=== PATIENT | male | born 1980 | race Caucasian/White ===

== ENCOUNTER 2017-01-25 16:26 | Emergency (ER) | payer OTHER ==
[~2017-01-25 16:26] MED LIST: ZYRTEC10 M2 PO
== END 2017-01-25 17:03 | disposition home or self-care (01) ==
LOC: SED 16:26
DX: J02.0 Streptococcal pharyngitis (principal); Z88.8 Allergy status to other drugs, medicaments and biological substances
CPT/HCPCS: 87651; 99282

== ENCOUNTER 2017-04-09 20:07 | Emergency (ER) | payer OTHER ==
--- NOTE | ~2017-04-09 | EKG ---
PATIENT: VERO MAYER UNIT #: [id number] Ventricular Rate: 70 BPM Atrial Rate: 70 BPM P-R Interval: 140 ms QRS Duration: 80 ms Q-T Interval: 380 ms QTC Calculation(Bezet): 410 ms P [place]: 55 degrees Calculated R [place]: 76 degrees Calculated T [place]: 70 degrees Diagnosis Line: Normal sinus rhythm Diagnosis Line: Normal ECG Diagnosis Line: No previous ECGs available Diagnosis Line: Confirmed by BALAJI HANSON MD ([id number]) on Diagnosis Line: 04/09/2017 10:25:55 PM INTERPRETING MD: IVÁN
--- NOTE | ~2017-04-09 | CR72 ---
[facility] A Service of [facility] & [facility] RADIOLOGY TEXT RESULTS PATIENT: VERO MAYER LOCATION: [facility] : 76 UNIT #: [id number] AGE: [address]: Taniya Harvey MD SEX: M ORDER DR: [id number] [facility] [address] [place], [place] [address] [id number] E MR#: [id number] Acc #: [id number] NAME: VERO MAYER : 1980 SEX: M STUDY DATE/TIME: 04/09/2017 21:24 UNIT: [facility] ROOM: STUDY DESCRIPTION: CR Chest Single View Portable Attending Physician: Taniya Harvey M.D. Ordering Physician: Ed Doctor [id number] [facility] Primary Care Physician: Stephany Kaiser M.D. MEDICAL IMAGING REPORT This report is preliminary unless electronic signature is present EXAM Portable chest HISTORY Left side chest pain today. FINDINGS Cardiac size and pulmonary vascularity are normal. Mild mid-right thoracic curve. Fibrotic scarring in both lung apices. IMPRESSION No acute findings and no active disease. Dictated by... Steven Babcock M.D. THIS IS AN ELECTRONICALLY VERIFIED REPORT Steven Babcock M.D. at 04/10/2017 3:06 PM Dinorah TD: 04/10/2017 08:07 JOB #: [id number] MEDICAL IMAGING REPORT Page 1 of 1 COPY
[2017-04-09 21:25] LABS: POC - CKMB <1.0 ng/mL (0.0-7.9); POC - TROPONIN <0.05 ng/mL (<=0.05)
[2017-04-09 22:00] LABS: INR 1.1; PARTIAL THROMBOPLASTIN TIME 30.3 SECONDS (23.5-31.3); PROTHROMBIN TIME (PATIENT) 11.5 SECONDS (9.6-11.5)
[2017-04-09 22:07] LABS: ALBUMIN SERUM 4.8 g/dL (3.5-5.0); BILIRUBIN, DIRECT 0.2 mg/dL (0.0-0.2); BILIRUBIN,INDIRECT 2.9 mg/dL (0.0-0.9); BILIRUBIN,TOTAL 3.1 mg/dL (0.2-2.0); BUN/CREATININE RATIO 22.22; CALCIUM SERUM 9.3 mg/dL (8.4-10.2); CREATININE SERUM 0.9 mg/dL (0.6-1.4); GLOM FILT RATE Estimated 107.2 mL/min (>60); POTASSIUM 3.8 mmol/L (3.5-5.1); PROTEIN TOTAL SERUM 7.3 g/dL (6.0-8.3)
[2017-04-09 22:13] LABS: BASOPHIL# 0.2 X10e3 (0-0.3); BASOPHIL% 1.8 % (0-2.5); EOSINOPHIL# 0.2 X10e3 (0-0.7); EOSINOPHIL% 1.9 % (0.0-7.0); HEMATOCRIT 35.2 % (38.0-50.0); HEMOGLOBIN 12.9 gm/dL (13.0-16.0); LYMPHOCYTE# 2.9 X10e3 (1.0-3.5); LYMPHOCYTE% 33.1 % (17.0-45.0); MEAN CELL VOLUME 85.2 FL (83-96); MEAN CORPUSCULAR HEMOGLOBIN 31.1 PG (28-34); MEAN CORPUSCULAR HGB CONC 36.5 g/dL (30-36); MEAN PLATELET VOLUME 8.5 FL (6.5-11.5); MONOCYTE# 0.5 X10e3 (0-1.0); MONOCYTE% 6.2 % (3.0-12.0); NEUTROPHIL# 5.1 X10e3 (1.5-7.1); PLATELET COUNT 277 X10e3 (140-420); RED BLOOD COUNT 4.13 X10e (3.90-5.60); RED CELL DISTRIBUTION WIDTH 16.9 % (11.0-15.5); WHITE BLOOD COUNT 8.9 X10e3 (4.0-10.5)
[2017-04-09 22:16] LABS: DIFF IND NO
== END 2017-04-09 23:44 | disposition home or self-care (01) ==
LOC: CED 20:07
DX: R07.89 Other chest pain (principal); E11.9 Type 2 diabetes mellitus without complications; E78.5 Hyperlipidemia, unspecified; Z88.1 Allergy status to other antibiotic agents
CPT/HCPCS: 36415; 71010; 80048; 80076; 82553; 84484; 85025; 85610; 85730; 93005; 99284